=== PATIENT | female | born 1995 ===

== ENCOUNTER 2017-07-21 18:10 | Emergency (ER) | payer MEDICAID, OTHER ==
[2017-07-21 18:49] VITALS: BP 146/85; PULSE 94; RESP 17; TEMP 98.4; O2SAT 99
--- NOTE | 2017-07-21 19:15 | ED PDOC ---
HPI: Back Time Seen by Provider: 07/21/17 19:01 Chief Complaint (Nursing): Back Pain Chief Complaint (Provider): Back Pain History Per: Patient History/Exam Limitations: no limitations Current Symptoms Are (Timing): Still Present Additional Complaint(s): 22 year old female presents to ED with complaints of persistent atraumatic lower back pain x1 day and has no past medical history. (-) urinary symptoms or radiation of pain. (+) mild numbness in lower back after prolonged periods of sitting. Confirms pain worsens with movement and notes that pain temporarily resolves with ibuprofen 600mg, which was taken this morning. 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 Patient further reports that she had similar symptoms 2 years ago after slipped on stairs and landing on her back. Confirms pain resolved with time. PCP: None Past Medical History Reviewed: Historical Data, Nursing Documentation, Vital Signs Vital Signs: Last Vital Signs Temp 98.4 F 07/21/17 18:46 Pulse 94 H 07/21/17 18:46 Resp 17 07/21/17 18:46 BP 146/85 07/21/17 18:46 Pulse Ox 99 07/21/17 18:46 - Medical History PMH: No Chronic Diseases Denies: Asthma, Diabetes, HTN - Family History Family History: States: Unknown Family Hx, Diabetes - Social History Current smoker - smoking cessation education provided: No Ex-Smoker (has not smoked in the last 12 months): No Alcohol: None Drugs: Denies - Immunization History Hx Tetanus Toxoid Vaccination: Yes Hx Influenza Vaccination: Yes Hx Pneumococcal Vaccination: No - Home Medications Home Medications: Ambulatory Orders Medication Instructions Recorded Nitrofurantoin Macrocrystals 1 cap PO BID #14 cap 02/28/16 [Macrobid] Ibuprofen [Motrin] 600 mg PO TID 7 Days tab 04/01/16 Ondansetron ODT [Zofran ODT] 4 mg PO Q8 PRN #12 odt 07/01/16 Vit37/Iron/Folic Acid 1 ctb PO DAILY #120 ctb 07/21/17 [Prenata] - Allergies Allergies/Adverse Reactions: Allergies Allergy/AdvReac Type Severity Reaction Status Date / Time acetaminophen [From Tylenol] Allergy RASH Verified 07/21/17 18:46 Review of Systems ROS Statement: Except As Marked, All Systems Reviewed And Found Negative Genitourinary Female: Negative for: Dysuria, Frequency, Incontinence, Hematuria Musculoskeletal: Positive for: Back Pain. Negative for: Leg Pain (no radiation of back pain) Neurological: Positive for: Numbness (mild numbness in lower back after prolonged sitting) Physical Exam - Reviewed Nursing Documentation Reviewed: Yes Vital Signs Reviewed: Yes - Physical Exam Back: Positive for: Normal Inspection, Vertebral Tenderness, Other (ttp at location of L3-4; no reduction in active or passive ROM). Negative for: Decreased ROM, Muscle Spasm - ECG O2 Sat by Pulse Oximetry: 99 (RA) Pulse Ox Interpretation: Normal Medical Decision Making Medical Decision Makin Initial impression: r/o ; Initial plan: * Toradol 60mg IM * Acetaminophen 650mg PO * UA * Re-eval 1926 * HCG QUALITATIVE (+) * Serum HCG Qualitative (+) Scribe Attestation: Documented by Perla Hinds, acting as a scribe for Baldomero Valerio PA-C. Provider Scribe Attestation: All medical record entries made by the Scribe were at my direction and personally dictated by me. I have reviewed the chart and agree that the record accurately reflects my personal performance of the history, physical exam, medical decision making, and the department course for this patient. I have also personally directed, reviewed, and agree with the discharge instructions and disposition. 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, who has been referred to you -- below Prescriptions: Vit37/Iron/Folic Acid [Prenata] 1 ctb PO DAILY #120 ctb Instructions: Medications and , Weight Gain During , Alcohol and , Activity During , - The Second Month, - The Third Month Forms: [employer] (Mongolian) Results - Lab Results Lab Results: 07/21/17 07/21/17 19:48 19:12 Serum HCG, Qual Positive Urine Color Yellow Urine Clarity Slighty-cloudy Urine pH 6.0 Ur Specific [place] 1.035 H Urine Protein 30 Urine Glucose (UA) Neg Urine Ketones Trace Urine Blood Negative Urine Nitrate Negative Urine Bilirubin Negative Urine Urobilinogen 0.2-1.0 Ur Leukocyte Esterase Neg Urine RBC (Auto) 3 Urine Microscopic WBC < 1 Ur Squamous Epith Cells 1
[2017-07-21 19:52] LABS: SQUAMOUS EPITHIAL 1 /hpf (0-5); URINE BILIRUBIN NEGATIVE (NEGATIVE); URINE BLOOD NEGATIVE (NEGATIVE); URINE CLARITY SLIGHTY-CLOUDY (Clear); URINE COLOR YELLOW (YELLOW); URINE GLUCOSE (UA) NEG (Normal); URINE LEUKOCYTE ESTERASE NEG Leu/uL (Negative); URINE PROTEIN 30 mg/dL (NEGATIVE); URINE UROBILINOGEN 0.2-1.0 mg/dL (0.2-1.0)
== END 2017-07-21 21:05 | disposition home or self-care (01) ==
LOC: H.ER 18:10
DX: Z32.01 Encounter for pregnancy test, result positive (principal)

== ENCOUNTER 2018-07-21 19:39 | Emergency (ER) | payer MEDICAID, OTHER ==
[2018-07-21] MEDS ORDERED: Sodium Chloride 0.9% 1,000 ML IV STA (20:32)
[2018-07-21 21:01] LABS: BASO # 0.1 K/uL (0.0-0.2); EOS % 0.6 % (0.0-4.0); HEMOGLOBIN 11.4 g/dL (12.0-16.0); LYMPH % 51.7 % (20.0-40.0); MEAN CELL VOLUME 83.9 fl (81.0-99.0); MEAN CORPUSCULAR HGB CONC 32.1 g/dL (33.0-37.0); MEAN PLATELET VOLUME 8.2 fl (7.2-11.7); MONO # 0.4 K/uL (0.0-0.8); NEUT # 3.2 K/uL (1.8-7.0); NEUT % 41.7 % (50.0-75.0); NRBC % 0.1 % (0.0-0.0); RBC 4.24 Mil/uL (3.80-5.20); RED CELL DISTRIBUTION WIDTH 15.7 % (11.5-14.5); WHITE BLOOD COUNT 7.7 K/uL (4.8-10.8)
--- NOTE | 2018-07-21 21:02 | ED PDOC ---
HPI: Abdomen Time Seen by Provider: 07/21/18 20:09 Chief Complaint (Nursing): Abdominal Pain Chief Complaint (Provider): Pelvic Pain, Vaginal Bleeding History Per: Patient History/Exam Limitations: no limitations Onset/Duration Of Symptoms: Days (x5 months) Current Symptoms Are (Timing): Still Present Additional Complaint(s): 23 year old female presents to the ED for evaluation of vaginal bleeding associated with bilateral pelvic pain for the past five months s/p having a normal vaginal delivery. She states that the bleeding is pretty consistent, but there will be some days where she does not bleed, and some days where she bleeds more, maxing out at three pads a day. Patient notes that since she has been unable to follow up with her fws faculty assistant as the delivery happened in [place]. She further states that she only experiences pelvic pain when touching the area, and not at rest. Additionally, patient says that she had one episode of soft stool earlier today, non-diarrheal. Otherwise denies history of anemia, fever, hematuria, dysuria, and weakness. Did not take any medications for pain or bleeding before arrival. PMD: none provided Past Medical History Reviewed: Historical Data, Nursing Documentation, Vital Signs Vital Signs: Last Vital Signs Temp 98.2 F 07/21/18 19:43 Pulse 80 07/21/18 19:43 Resp 17 07/21/18 19:43 BP 119/63 07/21/18 19:43 Pulse Ox 99 07/21/18 19:43 - Medical History PMH: No Chronic Diseases Denies: Anemia, Asthma, Diabetes, HTN - Surgical History Surgical History: No Surg Hx - Family History Family History: States: Unknown Family Hx, Diabetes - Social History Current smoker - smoking cessation education provided: No Alcohol: None Drugs: Denies - Immunization History Hx Tetanus Toxoid Vaccination: Yes Hx Influenza Vaccination: Yes Hx Pneumococcal Vaccination: No - Home Medications Home Medications: Ambulatory Orders Medication Instructions Recorded Nitrofurantoin Macrocrystals 1 cap PO BID #14 cap 02/28/16 [Macrobid] Ibuprofen [Motrin] 600 mg PO TID 7 Days tab 04/01/16 Ondansetron ODT [Zofran ODT] 4 mg PO Q8 PRN #12 odt 07/01/16 Vit37/Iron/Folic Acid 1 ctb PO DAILY #120 ctb 07/21/17 [Prenata] Naproxen [Naprosyn] 500 mg PO BID PRN #10 tab 07/21/18 - Allergies Allergies/Adverse Reactions: Allergies Allergy/AdvReac Type Severity Reaction Status Date / Time acetaminophen [From Tylenol] Allergy RASH Verified 07/21/18 19:47 Review of Systems ROS Statement: Except As Marked, All Systems Reviewed And Found Negative Constitutional: Negative for: Fever, Weakness Gastrointestinal: Negative for: Diarrhea Genitourinary Female: Positive for: Vaginal Bleeding, Pelvic Pain (bilateral). Negative for: Dysuria, Hematuria Physical Exam - Reviewed Nursing Documentation Reviewed: Yes Vital Signs Reviewed: Yes - Physical Exam Appears: Positive for: No Acute Distress Skin: Positive for: Normal Color, Warm, Dry. Negative for: Rash Eye Exam: Positive for: Normal appearance Cardiovascular/Chest: Positive for: Regular Rate, Rhythm Respiratory: Positive for: Normal Breath Sounds. Negative for: Accessory Muscle Use, Respiratory Distress Gastrointestinal/Abdominal: Positive for: Normal Exam, Soft. Negative for: Tenderness Back: Positive for: Normal Inspection. Negative for: L CVA Tenderness, R CVA Tenderness - Laboratory Results Result Diagrams: 07/21/18 20:58 07/21/18 20:58 Urine POC: Negative Urine dip results: Positive for: Blood (small). Negative for: Leukocyte Esterase, Nitrate, Ketones, Glucose, Bilirubin, Protein - ECG O2 Sat by Pulse Oximetry: 99 (RA) Pulse Ox Interpretation: Normal Medical Decision Making Medical Decision Making: Time: 2036 Initial Impression: pelvic pain, vaginal bleeding Initial Plan: --Type and screen --CMP --Lipase --NPO diet --U-dip --U-preg --CBC with differential --PT / PTT --Normal saline IV --Pepcid 20mg IVP --Toradol 15mg IVP --Reevaluation 2136 US FINDINGS: ENDOMETRIUM: Normal thickness measuring 4.9 mm in AP dimension. UTERUS/CERVIX: The uterus appears within normal limits measuring 7.0 x 4.1 x 5.1 cm in longitud inal, AP and transverse dimensions respectively. No uterine fibroid or other mass evident. RIGHT OVARY: Normal Doppler flow. No abnormal mass. Several tiny follicles are scattered within the right ovary. LEFT OVARY: Normal Doppler flow. No abnormal mass. Several tiny follicles are scattered with in the left ovary. FREE FLUID: Minimal free fluid in the posterior cul-de-sac. IMPRESSION: 1. A few scattered tiny follicles in the ovaries bilaterally. 2. Minimal free fluid in the posterior cul-de-sac. 3. Otherwise, unremarkable pelvic ultrasound. Pt. informed of all results. Advised to f/u with [facility] for further evaluation but is to return to ED immediately if symptoms worsen. Reports good relief of pain. Scribe Attestation: Documented by Jimena Mendez, acting as a scribe for Maxi Haile PA-C. Provider Scribe Attestation: All medical record entries made by the Scribe were at my direction and personally dictated by me. I have reviewed the chart and agree that the record accurately reflects my personal performance of the history, physical exam, me dical decision making, and the department course for this patient. I have also personally directed, reviewed, and agree with the discharge instructions and disposition. Disposition - Clinical Impression Clinical Impression: Abnormal uterine bleeding - Patient ED Disposition Is Patient to be Admitted: No - Disposition Referrals: [facility] [Outside] Disposition: Routine/Home Disposition Time: 22:05 Condition: IMPROVED Additional Instructions: FOLLOW UP WITH [facility] FOR FURTHER EVALUATION RETURN TO ED IMMEDIATELY IF SYMPTOMS WORSEN SLIM MARY, thank you for letting us take care of you today. Your provider was Gabino Sanford MD and you were treated for ABD PAIN. The emergency medical care you received today was directed at your acute symptoms. If you were prescribed any medication, please fill it and take as directed. It may take several days for your symptoms to resolve. Return to the Emergency Department if your symptoms worsen, do not improve, or if you have any other problems. Please contact your doctor or call one of the physicians/clinics you have been referred to that are listed on the Patient Visit Information form that is included in your discharge packet. Bring any paperwork you were given at discharge with you along with any medications you are taking to your follow up visit. Our treatment cannot replace ongoing medical care by a primary care provider outside of the emergency department. Thank you for allowing the [facility] team to be part of your care today. If you had an X-Ray or CT scan: A Radiologist will review the ED reading if any change in treatment is needed we will contact you. If you had a blood, urine, or wound culture: It will take several days for the results, if any change in treatment is needed we will contact you. If you had an STI test: It will take 48 hours for the results. Please call after 1 week if you have not heard back. Prescriptions: Naproxen [Naprosyn] 500 mg PO BID PRN #10 tab PRN Reason: Pain Instructions: Absent or Irregular Periods Forms: [employer] (Upper Sorbian) Print Language: SAO TOMEAN
[2018-07-21 21:10] LABS: PROTHROMBIN TIME 11.6 Seconds (9.8-13.1)
[2018-07-21 21:14] LABS: ALB/GLOB RATIO 1.7 (1.0-2.1); ALT/SGPT 32 U/L (9-52); AST/SGOT 42 U/L (14-36); BLOOD UREA NITROGEN 7 mg/dl (7-17); CALCIUM 9.5 mg/dL (8.4-10.2); GFR NON-AFRICAN AMERICAN > 60; LIPASE 101 U/L (23-300)
[2018-07-21 23:06] VITALS: BP 122/70; PULSE 74; RESP 18; TEMP 98.3
[2018-07-22 03:20] VITALS: O2SAT 99
--- NOTE | 2018-07-22 10:51 | US ---
Date of service: 07/21/2018 HISTORY: Persistent pelvic pain. Vaginal bleeding. LMP March 25, 2018, intermittent and irregular. COMPARISON: None available. TECHNIQUE: Transvaginal only. Real -time technique with 2D, duplex and color Doppler FINDINGS: UTERUS: Measures 4.1 x 5.17.0 cm. Normal in size and appearance. No fibroid or other mass lesion seen. ENDOMETRIUM: Measures 4.9 mm in diameter. No ultrasound findings to suggest gestational sac, fluid, debris, mass or polyp or other pathologic process within the endometrium. CERVIX: No cervical abnormality identified. RIGHT OVARY: Measures 2 x 2.9 x 3 6 cm. No solid mass. Normal flow. Multiple subcentimeter follicles. LEFT OVARY: Measures 1.6 x 3.2 x 3.2 cm. No solid mass. Normal flow. Multiple subcentimeter follicles. FREE FLUID: Trace free fluid identified in the pelvis/cul de sac. OTHER FINDINGS: None. IMPRESSION: Trace free fluid in the cul-de-sac likely physiological. Uncomplicated fluid, as visualized. No acute findings related to/ accounting for the clinical presentation. Concordant findings (preliminary report) provided by [facility].
== END 2018-07-21 22:45 | disposition home or self-care (01) ==
LOC: H.ER 19:39
DX: N93.9 Abnormal uterine and vaginal bleeding, unspecified (principal); Z88.6 Allergy status to analgesic agent
CPT/HCPCS: 76830; 80053; 81025; 83690; 85025; 85610; 85730; 86850; 86870; 86900; 96361; 96374; 99284; J1885; J7030

== ENCOUNTER 2018-08-12 22:41 | Emergency (ER) | payer MEDICAID, OTHER ==
--- NOTE | 2018-08-13 00:51 | ED PDOC ---
HPI: Abdomen Time Seen by Provider: 08/13/18 00:00 Chief Complaint (Nursing): GI Problem Chief Complaint (Provider): GI Problem History Per: Patient History/Exam Limitations: no limitations Onset/Duration Of Symptoms: Days (x2) Location Of Pain/Discomfort: Other (lower abdomen) Associated Symptoms: Vomiting. denies: Fever, Diarrhea Additional Complaint(s): 23 years old female presents to ER with mother for evaluation of abdominal pain and vomiting onset last night. Patient reports she vomited many times today and reports worsening of symptoms an hour prior to arrival. 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 Patient denies fever and diarrhea. PMD: Alexis Munson Past Medical History Reviewed: Historical Data, Nursing Documentation, Vital Signs Vital Signs: Last Vital Signs Temp 98.7 F 08/12/18 22:42 Pulse 76 08/12/18 22:42 Resp 18 08/12/18 22:42 BP 128/69 08/12/18 22:42 Pulse Ox 100 08/12/18 22:42 - Medical History PMH: Denies: Anemia, Asthma, Diabetes, HTN - Surgical History Surgical History: No Surg Hx - Family History Family History: States: Unknown Family Hx, Diabetes - Immunization History Hx Tetanus Toxoid Vaccination: Yes Hx Influenza Vaccination: Yes Hx Pneumococcal Vaccination: No - Home Medications Home Medications: Ambulatory Orders Medication Instructions Recorded Nitrofurantoin Macrocrystals 1 cap PO BID #14 cap 02/28/16 [Macrobid] Ibuprofen [Motrin] 600 mg PO TID 7 Days tab 04/01/16 Ondansetron ODT [Zofran ODT] 4 mg PO Q8 PRN #12 odt 07/01/16 Vit37/Iron/Folic Acid 1 ctb PO DAILY #120 ctb 07/21/17 [Prenata] Naproxen [Naprosyn] 500 mg PO BID PRN #10 tab 07/21/18 - Allergies Allergies/Adverse Reactions: Allergies Allergy/AdvReac Type Severity Reaction Status Date / Time acetaminophen [From Tylenol] Allergy RASH Verified 08/12/18 22:42 Review of Systems ROS Statement: Except As Marked, All Systems Reviewed And Found Negative Constitutional: Negative for: Fever Gastrointestinal: Positive for: Vomiting, Abdominal Pain (lower). Negative for: Diarrhea Physical Exam - Reviewed Nursing Documentation Reviewed: Yes Vital Signs Reviewed: Yes - Physical Exam Appears: Positive for: Well, No Acute Distress Head Exam: Positive for: ATRAUMATIC, NORMOCEPHALIC Skin: Positive for: Normal Color, Warm, Dry Eye Exam: Positive for: Normal appearance Neck: Positive for: Normal Cardiovascular/Chest: Positive for: Regular Rate, Rhythm. Negative for: Murmur Respiratory: Positive for: Normal Breath Sounds. Negative for: Respiratory Distress Gastrointestinal/Abdominal: Positive for: Soft, Tenderness (mild to lower area) Back: Positive for: Normal Inspection. Negative for: L CVA Tenderness, R CVA Tenderness Extremity: Positive for: Normal ROM. Negative for: Pedal Edema, Deformity Neurological/Psych: Positive for: Awake, Alert, Oriented (x3) - Laboratory Results Result Diagrams: 08/13/18 01:03 08/13/18 01:03 - ECG O2 Sat by Pulse Oximetry: 100 (RA) Pulse Ox Interpretation: Normal Medical Decision Making Medical Decision Making: Time: 0018 Initial Plan: lower abdominal pain, vomiting rule out infection, electrolyte abnormality --CT Abdomen/Pelvis --CMP --Lipase --CBC 0334 CT Abdomen/Pelvis Findings: COMMENTS: Uncomplicated colonic diverticulosis. Moderate amount of fecal residue in the large bowel. Mild ileus. Changes of pelvic congestion syndrome. 1.1 cm well-defined hypodense lesion of the right hepatic lobe. Probably a cyst. Mild diffuse thickening of the bladder. The liver is of uniform attenuation without mass or defect. There is no intra or extrahepatic biliary ductal dilatation. The spleen is normal. The gallbladder is within normal limits. The pancreas is of normal contour and attenuation characteristics. There is no evidence of adrenal mass. Both kidneys demonstrate prompt and equal nephrograms. The kidneys are normal in size, shape and configuration. There is no evidence of renal or ureteral mass. No renal or ureteral calculi are identified. There is no hydroureter or hydronephrosis. No evidence for appendicitis. There is no bowel wall thickening. No evidence for small or large bowel obstruction. There is no evidence of abdominal ascites or lymphadenopathy. There is no evidence of intrinsic or extrinsic bladder mass. There is no pelvic ascites or lymphadenopathy. Images of the lung bases show no evidence of pleural or parenchymal mass. There are no pleural effusions. The bony structures are free of lytic or blastic lesions. IMPRESSION: Uncomplicated colonic diverticulosis. Moderate amount of fecal residue in the large bowel. Mild ileus. Changes of pelvic congestion syndrome. 1.1 cm well-defined hypodense lesion of the right hepatic lobe. Probably a cyst. Mild diffuse thickening of the bladder. 05[address] Patient is aware of CT results and her LFTs. Patient is stable for discharge after receiving potassium. also aware of liver cyst. will follow up with doctor on her insurance plan as well asgynecologist. she states she feels much imrpo felipa, toelrated po without a problem. Scribe Attestation: Documented by Alecia Jesus, acting as a scribe for Serjio Ramirez MD. Provider Scribe Attestation: All medical record entries made by the Scribe were at my direction and personally dictated by me. I have reviewed the chart and agree that the record accurately reflects my personal performance of the history, physical exam, medical decision making, and the department course for this patient. I have also personally directed, reviewed, and agree with the discharge instructions and disposition. Disposition - Clinical Impression Clinical Impression: Abdominal pain - Patient ED Disposition Is Patient to be Admitted: No Counseled Patient/Family Regarding: Studies Performed, Diagnosis, Need For Followup - Disposition Disposition: Routine/Home Disposition Time: 05:30 Condition: IMPROVED Additional Instructions: you have elevated liver function tests, low potassium your CT notes that you have pelvic congestion syndrome. 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
[2018-08-13 01:07] LABS: BASO # 0.1 K/uL (0.0-0.2); BASO % 0.4 % (0.0-2.0); EOS % 0.1 % (0.0-4.0); HEMOGLOBIN 11.1 g/dL (12.0-16.0); LYMPH # 2.6 K/uL (1.0-4.3); LYMPH % 19.9 % (20.0-40.0); MEAN CELL VOLUME 84.3 fl (81.0-99.0); MEAN CORPUSCULAR HEMOGLOBIN 26.6 pg (27.0-31.0); MEAN CORPUSCULAR HGB CONC 31.5 g/dL (33.0-37.0); MEAN PLATELET VOLUME 8.5 fl (7.2-11.7); MONO # 0.8 K/uL (0.0-0.8); MONO % 6.1 % (0.0-10.0); NEUT # 9.7 K/uL (1.8-7.0); NEUT % 73.5 % (50.0-75.0); RBC 4.17 Mil/uL (3.80-5.20); RED CELL DISTRIBUTION WIDTH 15.7 % (11.5-14.5); WHITE BLOOD COUNT 13.2 K/uL (4.8-10.8)
[2018-08-13] MEDS: Sodium Chloride 0.9% 1,000 ML IV STA (01:14)
[2018-08-13 01:39] LABS: LIPASE 140 U/L (23-300)
[2018-08-13 01:58] LABS: ALB/GLOB RATIO 1.5 (1.0-2.1); ALBUMIN 4.8 g/dL (3.5-5.0); ALT/SGPT 55 U/L (9-52); AST/SGOT 41 U/L (14-36); BLOOD UREA NITROGEN 12 mg/dl (7-17); CALCIUM 9.2 mg/dL (8.4-10.2); GFR NON-AFRICAN AMERICAN > 60
[2018-08-13] MEDS ORDERED: Sodium Chloride 0.9% 50 ML IV ONE (02:05)
[2018-08-13] MEDS ORDERED: Iohexol 300 100 ML IJ ONE (02:06)
[2018-08-13 03:28] LABS: SQUAMOUS EPITHIAL 1 /hpf (0-5); URINE BILIRUBIN NEGATIVE (NEGATIVE); URINE CLARITY CLEAR (Clear); URINE COLOR YELLOW (YELLOW); URINE GLUCOSE (UA) NEG (NEGATIVE); URINE LEUKOCYTE ESTERASE NEG Leu/uL (Negative); URINE PROTEIN NEGATIVE (NEGATIVE); URINE UROBILINOGEN 0.2-1.0 mg/dL (0.2-1.0)
[2018-08-13 03:42] LABS: URINE BLOOD TRACE (NEGATIVE)
[2018-08-13] MEDS ORDERED: Potassium Chloride 20 mEq ER Tab PO ONE (05:10)
[2018-08-13] MEDS: Potassium Chloride 20 mEq ER Tab PO ONE (05:18)
[2018-08-13 05:48] VITALS: BP 110/70; PULSE 67; RESP 16; TEMP 98.2
[2018-08-13 06:30] VITALS: O2SAT 100
--- NOTE | 2018-08-13 11:32 | CT ---
Date of service: 08/13/2018 PROCEDURE: CT Abdomen and Pelvis with contrast HISTORY: abdominal pain COMPARISON: None available. TECHNIQUE: CT scan of the abdomen and pelvis was performed after administration of intravenous contrast. Oral contrast was not administered. Coronal and sagittal reformatted images were obtained. Contrast dose: Radiation dose: Total exam DLP = 243.35 mGy-cm. This CT exam was performed using one or more of the following dose reduction techniques: Automated exposure control, adjustment of the mA and/or kV according to patient size, and/or use of iterative reconstruction technique. FINDINGS: LOWER THORAX: The visualized lungs are clear. LIVER: Normal in size with homogeneous enhancement. There is a 9 mm low-attenuation lesion in the right hepatic lobe too small to characterize by CT criteria. No ductal dilatation. GALLBLADDER AND BILE DUCTS: Well distended. No calcified gallstones, wall thickening or pericholecystic fluid. PANCREAS: Normal in size with homogeneous enhancement. No gross lesion or ductal dilatation. SPLEEN: Normal in size and appearance. ADRENALS: No discrete nodule. KIDNEYS AND URETERS: Normal in size with homogeneous enhancement. No hydronephrosis. No solid mass. VASCULATURE: No aortic aneurysm. There are no aortic atherosclerotic calcifications or mural plaque present. BOWEL: Evaluation of the bowel is limited in the absence of oral contrast. The proximal small bowel loops are normal in caliber. There are fluid-filled mildly dilated mid and distal small bowel loops. There is large amount of stool in the colon. No bowel wall thickening or obstruction. APPENDIX: Normal appendix. PERITONEUM: No free fluid. No free air. LYMPH NODES: No enlarged lymph nodes. BLADDER: Well distended and normal in appearance. REPRODUCTIVE: The uterus is normal in size. BONES: No acute fracture. Within normal limits for the patient's age. OTHER FINDINGS: None. IMPRESSION: No acute abdominal or pelvic abnormality. Constipation. No evidence for bowel obstruction. Fluid-filled mildly dilated distal small bowel loops could be related to ileus or diarrhea. A preliminary report was provided by [facility].
== END 2018-08-13 06:35 | disposition home or self-care (01) ==
LOC: H.ER 22:41
DX: N94.89 Other specified conditions associated with female genital organs and menstrual cycle (principal); K57.30 Diverticulosis of large intestine without perforation or abscess without bleeding; K56.7 Ileus, unspecified; K76.89 Other specified diseases of liver; R94.5 Abnormal results of liver function studies; Z88.6 Allergy status to analgesic agent
CPT/HCPCS: 74177; 80053; 81003; 81025; 83690; 85025; 87086; 96360; 99284; J2270; J2405; J7030; Q9967